=== PATIENT | male | born 1965 | race Native Hawaiian/Other Pacific Islander ===

== ENCOUNTER 2022-03-03 12:15 | Observation (INO) | payer BC ==
[~2022-03-03] VITALS: Ht 172.7 cm; Wt 91.3 kg
[2022-03-03 12:58] VITALS: BP 171/105; TEMP 98.2; Ht 172.7 cm; Wt 91.3 kg
[2022-03-03] MEDS ORDERED: AMLODIPINE BESYLATE PO ×2 (13:45)
[2022-03-03] MEDS ORDERED: DIPHTAB PO ×2 (13:47)
[2022-03-03 13:57] LABS: PLATELET COUNT 315 K/uL (142-355)
[2022-03-03 14:47] LABS: POTASSIUM 3.6 mmol/L (3.6-5.2)
[2022-03-03 16:00] VITALS: BP 148/93; TEMP 98.3
[2022-03-03 20:00] VITALS: BP 142/92; TEMP 98.3
[2022-03-03 23:31] VITALS: BP 140/97; TEMP 98.3
[2022-03-04 03:32] VITALS: BP 124/95; TEMP 98.3
[2022-03-04 08:00] VITALS: BP 139/94; TEMP 98.7
[2022-03-04 12:00] VITALS: BP 143/96; TEMP 97.6
[2022-03-04] MEDS ORDERED: LOSA50TA PO ×2 (13:12)
[2022-03-04] MEDS ORDERED: METO-837 PO ×2 (13:13)
[2022-03-04] MEDS ORDERED: LIPITOR40 MG PO ×2 (13:14)
== END 2022-03-04 14:59 | disposition home or self-care (01) ==
LOC: MED/SURG 12:15
PROVIDERS: ADMIT Family Medicine; ATTEND Internal Medicine
DX: R07.89 Other chest pain (principal); I73.89 Other specified peripheral vascular diseases; I99.8 Other disorder of circulatory system; I10 Essential (primary) hypertension; E78.49 Other hyperlipidemia
CPT/HCPCS: 36416; 80053; 82550; 83036; 84484; 85027; 87635; 93005; 96372; 96374; 99220; G0378; G0379; J0360; J1650; U0003

== ENCOUNTER 2022-03-07 08:12 | Outpatient (CLI) | payer BC ==
[~2022-03-07] VITALS: Ht 172.7 cm; Wt 91.2 kg
[~2022-03-07 08:12] MED LIST: AMLODIPINE BESYLATE PO; DIPHTAB PO; LIPITOR40 MG PO; LOSA50TA PO; METO-837 PO
== END 2022-03-07 19:02 | disposition home or self-care (01) ==
LOC: NM 08:12
PROVIDERS: ATTEND Nurse Practitioner Family
DX: I10 Essential (primary) hypertension (principal); R07.89 Other chest pain
CPT/HCPCS: A9500; J2785

== ENCOUNTER 2022-03-08 08:27 | Outpatient (CLI) | payer BC ==
[~2022-03-08] VITALS: Ht 172.7 cm; Wt 91.2 kg
== END 2022-03-08 19:13 | disposition home or self-care (01) ==
LOC: CT 08:27
PROVIDERS: ATTEND Surgery Vascular Surgery
DX: I73.9 Peripheral vascular disease, unspecified (principal)

== ENCOUNTER 2022-05-13 09:39 | Outpatient (CLI) | payer BC | END 2022-05-13 20:36 | disposition home or self-care (01) | LOC: RESP 09:39 | PROVIDERS: ATTEND Podiatrist | DX: Z01.810 Encounter for preprocedural cardiovascular examination (principal); Z01.811 Encounter for preprocedural respiratory examination; Z01.812 Encounter for preprocedural laboratory examination | CPT/HCPCS: 93005 ==